=== PATIENT | male | born 1975 | race Caucasian/White ===

== ENCOUNTER → 2017-10-03 | Outpatient (CLI) | payer BC ==
[~2017-10-03] MED LIST: No meds per pt.
== END ==
LOC: STAR 15:22
PROVIDERS: ATTEND Orthopaedic Surgery
DX: Z02.9 Encounter for administrative examinations, unspecified (principal)

== ENCOUNTER 2020-10-31 08:10 | Outpatient (CLI) | payer BC | END 2020-10-31 23:59 | disposition home or self-care (01) | LOC: PETCFH 08:10 | PROVIDERS: ATTEND Family Medicine | DX: R14.0 Abdominal distension (gaseous) (principal); R19.7 Diarrhea, unspecified | CPT/HCPCS: 78227; A9537 ==